=== PATIENT | female | born 1975 | race Caucasian/White ===

== ENCOUNTER 2022-03-18 00:33 | Inpatient (IN) | payer SELFPAY ==
[~2022-03-18] VITALS: Ht 160 cm; Wt 70.6 kg
[2022-03-18] MEDS ORDERED: SODIUM CHLORIDE 0.9% 1,000 ML IV ONE (01:00)
[2022-03-18] MEDS ORDERED: ASPIRIN 81MG TABLET PO ONE (01:00)
[2022-03-18 01:25] LABS: BASOPHILS % 0.6 % (0.0-2.0); EOSINOPHILS % 2.5 % (0.0-5.0); HEMATOCRIT. 38.6 % (36.0-48.0); LYMPHOCYTES % 23.7 % (20.0-50.0); MEAN CORPUSCULAR HEMOGLOBIN 28.6 pg (28.0-32.0); MEAN CORPUSCULAR VOLUME 85.2 fL (81.0-99.0); MEAN PLATELET VOLUME 9.2 fl (7.4-10.4); MONOCYTES % 8.3 % (2.0-8.0); NEUTROPHILS % 64.9 % (40.0-76.0); PLATELET 198 x1000/uL (130-400); RED BLOOD CELL COUNT 4.53 mill/uL (4.2-5.4); RED CELL DISTRIBUTION WIDTH 14.5 % (11.6-14.6)
[2022-03-18 01:27] LABS: CHLORIDE 109 mEq/L (98-107)
[2022-03-18 01:42] LABS: *AMPHETAMINES SCREEN URINE NEGATIVE (NEGATIVE); *BARBITURATES SCREEN URINE NEGATIVE (NEGATIVE); *BENZODIAZEPINES SCREEN URINE NEGATIVE (NEGATIVE); *COCAINE SCREEN URINE NEGATIVE (NEGATIVE); CANNABINOID URINE SCREEN NEGATIVE (NEGATIVE); METHADONE URINE SCREEN NEGATIVE (NEGATIVE); OPIATES URINE SCREEN NEGATIVE (NEGATIVE); PHENCYCLIDINE URINE SCREEN NEGATIVE (NEGATIVE)
[2022-03-18 01:47] LABS: ETHANOL BLOOD < 10 mg/dL
[2022-03-18] MEDS ORDERED: IPRATROPIUM/ALBUTEROL 0.5-3(2.5)MG/3ML NEB HHN PRN (05:15)
[2022-03-18] MEDS ORDERED: DIPHENHYDRAMINE 50MG/ML VIAL IV PRN (05:15)
[2022-03-18] MEDS ORDERED: MAGNESIUM/ALUMINUM HYDROXIDE/SIMETHICONE 30ML UDC PO PRN (05:15)
[2022-03-18] MEDS ORDERED: CLONIDINE 0.1MG TABLET PO PRN (05:15)
[2022-03-18] MEDS ORDERED: DOCUSATE SODIUM 100MG CAPSULE PO PRN (05:15)
[2022-03-18] MEDS ORDERED: HYDROCODONE/ACETAMINOPHEN 5/325MG TABLET PO PRN (05:15)
[2022-03-18] MEDS ORDERED: GUAIFENESIN 200MG/10ML SUGAR FREE UDC PO PRN (05:15)
[2022-03-18] MEDS ORDERED: ACETAMINOPHEN 325MG TABLET PO PRN ×2 (05:15)
[2022-03-18] MEDS ORDERED: ONDANSETRON HCL 4MG/2ML INJ IV PRN (05:15)
[2022-03-18] MEDS: METOPROLOL SUCCINATE 50MG ER TABLET PO SCH (06:01)
[2022-03-18] MEDS: PANTOPRAZOLE 40MG DR TABLET PO SCH (06:01)
[2022-03-18] MEDS: LOSARTAN POTASSIUM 100 MG TABLET PO SCH (06:01)
[2022-03-18 06:20] LABS: T4 FREE 0.97 ng/dL (0.76-1.46)
[2022-03-18 09:00] VITALS: BP 125/87
[2022-03-18] MEDS ORDERED: LOSA100T32 MT (09:10)
[2022-03-18] MEDS: ENOXAPARIN 40MG/0.4ML SYR SUBCUT SCH (09:11)
[2022-03-18 12:00] VITALS: BP 128/77
[2022-03-18] MEDS ORDERED: NALOXONE HCL 0.4MG/ML VIAL IV PRN (14:15)
[2022-03-18] MEDS ORDERED: POTASSIUM CHLORIDE INJ 40 MEQ in DEXT 5% WATER 250 ML IV ONE (15:00)
[2022-03-18 16:00] VITALS: BP 122/75
[2022-03-18] MEDS: KCL 20MEQ/100ML X 2 FOR TOTAL KCL 40MEQ/200ML IV SCH ×2 (17:07→19:07)
[2022-03-18 18:21] LABS: CREATINE KINASE MB FRACTION 1.6 ng/mL (0.5-3.6)
[2022-03-18 18:22] LABS: T4 FREE 0.94 ng/dL (0.76-1.46)
[2022-03-18 20:09] VITALS: BP 116/67
[2022-03-18] MEDS ORDERED: ATORVASTATIN CALCIUM 40MG TABLET PO SCH (21:00)
[2022-03-18 23:20] LABS: CREATINE KINASE 51 IU/L (26-192); CREATINE KINASE MB FRACTION < 1.0 ng/mL (0.5-3.6)
[2022-03-19 00:03] VITALS: BP 102/60
[2022-03-19 04:52] VITALS: BP 113/65
[2022-03-19] MEDS: PANTOPRAZOLE 40MG DR TABLET PO SCH (06:54)
[2022-03-19 07:38] LABS: HEMOGLOBIN 12.9 g/dL (12.0-16.0); MEAN CORPUSCULAR HEMOGLOBIN 28.8 pg (28.0-32.0); PLATELET 205 x1000/uL (130-400); RED BLOOD CELL COUNT 4.48 mill/uL (4.2-5.4); RED CELL DISTRIBUTION WIDTH 14.7 % (11.6-14.6)
[2022-03-19 08:00] VITALS: BP 129/81
[2022-03-19 08:06] LABS: CHLORIDE 103 mEq/L (98-107)
[2022-03-19 08:28] LABS: CREATINE KINASE 48 IU/L (26-192); CREATINE KINASE MB FRACTION < 1.0 ng/mL (0.5-3.6)
[2022-03-19] MEDS ORDERED: ASPIRIN 81MG TABLET PO SCH (09:00)
[2022-03-19] MEDS: ENOXAPARIN 40MG/0.4ML SYR SUBCUT SCH (09:28)
[2022-03-19] MEDS: LOSARTAN POTASSIUM 100 MG TABLET PO SCH (09:29)
[2022-03-19] MEDS: METOPROLOL SUCCINATE 50MG ER TABLET PO SCH (09:29)
[2022-03-19 12:00] VITALS: BP 96/58
[2022-03-19] MEDS ORDERED: PANT40TA51 PO (15:55)
[2022-03-19] MEDS ORDERED: LOSA100T3 PO (15:55)
[2022-03-19] MEDS ORDERED: METO-385 PO (15:55)
[2022-03-19] MEDS ORDERED: ASPI-1160 PO (15:55)
[2022-03-19] MEDS ORDERED: LIP40 PO (15:55)
[2022-03-19 16:00] VITALS: BP 109/69
[2022-03-19 16:30] VITALS: BP 109/69
== END 2022-03-19 17:00 | disposition home or self-care (01) | DRG 190 ==
LOC: ER 00:33 → 7WST 03:42
PROVIDERS: ADMIT Emergency Medicine; ATTEND Emergency Medicine
DX: I21.4 Non-ST elevation (NSTEMI) myocardial infarction (principal); I47.1 Supraventricular tachycardia; I10 Essential (primary) hypertension; F41.0 Panic disorder [episodic paroxysmal anxiety]; E78.5 Hyperlipidemia, unspecified; F17.210 Nicotine dependence, cigarettes, uncomplicated; Z79.82 Long term (current) use of aspirin; Z79.899 Other long term (current) drug therapy
CPT/HCPCS: 36415; 71045; 80048; 80053; 80061; 80305; 80320; 82550; 82553; 83036; 83880; 84439; 84443; 84484; 85025; 85027; 85379; 93005; 93306; 99285; J1650; J3480; J7030; G0480

== ENCOUNTER 2023-10-19 00:12 | Inpatient (IN) | payer SELFPAY ==
[~2023-10-19] VITALS: Ht 167.6 cm; Wt 83.5 kg
[~2023-10-19 00:12] MED LIST: ASPI-1160 PO; LIP40 PO; LOSA-415 PO; METO-385 PO; PANT40TA51 PO
[2023-10-19 01:18] LABS: BASOPHILS % 0.7 % (0.0-2.0); HEMATOCRIT. 39.7 % (36.0-48.0); HEMOGLOBIN. 13.2 g/dL (12.0-16.0); LYMPHOCYTES % 25.8 % (20.0-50.0); MEAN CORPUSCULAR HEMOGLOBIN 29.3 pg (28.0-32.0); MEAN CORPUSCULAR HGB CONC 33.3 g/dL (31.0-37.0); MEAN CORPUSCULAR VOLUME 87.9 fL (81.0-99.0); MEAN PLATELET VOLUME 9.6 fl (7.4-10.4); MONOCYTES % 7.8 % (2.0-8.0); NEUTROPHILS % 63.7 % (40.0-76.0); PLATELET 238 x1000/uL (130-400); RED BLOOD CELL COUNT 4.52 mill/uL (4.2-5.4); RED CELL DISTRIBUTION WIDTH 14.3 % (11.6-14.6); WHITE BLOOD COUNT 8.1 x1000/uL (4.5-11.0)
[2023-10-19] MEDS: METOPROLOL SUCCINATE 50MG ER TABLET PO STA (01:26)
[2023-10-19 01:29] LABS: CHLORIDE 106 mEq/L (98-107); POTASSIUM 3.5 mEq/L (3.5-5.1); SODIUM 138 mEq/L (136-145)
[2023-10-19 01:30] LABS: CARBON DIOXIDE 22 mEq/L (21-32)
[2023-10-19 01:35] LABS: CREATININE 0.8 mg/dL (0.6-1.0); GLUCOSE 195 mg/dL (70-105); UREA NITROGEN BLOOD 13 mg/dL (9-23)
[2023-10-19 01:53] LABS: TROPONIN I HIGH SENSITIVITY 116 ng/L (3.0-34)
[2023-10-19] MEDS: ASPIRIN 325MG EC TABLET PO ONE (02:35)
[2023-10-19 05:30] VITALS: BP 112/74; PULSE 87; RESP 24; TEMP 98.1
[2023-10-19 08:00] VITALS: BP 132/81; PULSE 83; RESP 20; TEMP 98.1
[2023-10-19] MEDS ORDERED: ONDANSETRON HCL 4MG/2ML INJ IV PRN (09:00)
[2023-10-19] MEDS ORDERED: KETOROLAC 30MG/ML VIAL IV PRN (09:00)
[2023-10-19] MEDS ORDERED: ACETAMINOPHEN 325MG TABLET PO PRN ×2 (09:00)
[2023-10-19] MEDS ORDERED: CLONIDINE 0.1MG TABLET PO PRN (09:00)
[2023-10-19] MEDS ORDERED: DOCUSATE SODIUM 100MG CAPSULE PO PRN (09:00)
[2023-10-19] MEDS ORDERED: IPRATROPIUM/ALBUTEROL 0.5-3(2.5)MG/3ML NEB NEB PRN (09:00)
[2023-10-19] MEDS ORDERED: MAGNESIUM/ALUMINUM HYDROXIDE/SIMETHICONE 30ML UDC PO PRN (09:00)
[2023-10-19] MEDS ORDERED: ZOLPIDEM TARTRATE 5MG TABLET PO PRN (09:00)
[2023-10-19] MEDS ORDERED: NITROGLYCERIN 0.4MG TABLET SL SL PRN (09:00)
[2023-10-19] MEDS ORDERED: GUAIFENESIN 200MG/10ML SUGAR FREE UDC PO PRN (09:00)
[2023-10-19] MEDS: ASPIRIN 325MG EC TABLET PO SCH (10:02)
[2023-10-19] MEDS: FAMOTIDINE 20MG TABLET PO SCH (10:03)
[2023-10-19] MEDS: METOPROLOL TARTRATE 25MG TABLET PO SCH (10:03)
[2023-10-19] MEDS: ENOXAPARIN 80MG/0.8ML SYR SUBCUT SCH ×2 (10:04→20:45)
[2023-10-19 10:35] LABS: TRIGLYCERIDE 239 mg/dL (0-150)
[2023-10-19 10:36] LABS: T4 FREE 0.94 ng/dL (0.89-1.76)
[2023-10-19 10:37] LABS: THYROID STIMULATING HORMONE 2.31 uIU/mL (0.55-4.78)
[2023-10-19 10:38] LABS: IRON 35 ug/dL (50-170)
[2023-10-19 10:39] LABS: LDL CHOLESTEROL 130 mg/dL (5-100)
[2023-10-19 10:40] LABS: ALANINE AMINOTRANSFERASE 39 IU/L (10-49); ALBUMIN 4.1 g/dL (3.2-4.8); ASPARTATE AMINOTRANSFERASE 32 IU/L (<34); BILIRUBIN DIRECT 0.1 mg/dL (<=3.0); BILIRUBIN TOTAL 0.3 mg/dL (0.1-1.0); CHOLESTEROL 180 mg/dL (<200); HDL CHOLESTEROL 42 mg/dL (>65); PROTEIN TOTAL 6.2 g/dL (6.0-8.3); TOTAL IRON BINDING CAPACITY 375 ug/dl (250-425)
[2023-10-19 10:45] LABS: FOLIC ACID (FOLATE) SERUM > 20.00 ng/mL (>5.38); VITAMIN B12 SERUM 626 pg/mL (211-911)
[2023-10-19 10:49] LABS: INR 0.9; PROTHROMBIN TIME 10.6 sec (9.6-11.0)
[2023-10-19 12:00] VITALS: BP 120/72; PULSE 79; RESP 18; TEMP 97.6
[2023-10-19 16:00] VITALS: BP 119/74; PULSE 76; RESP 20; TEMP 97.2
[2023-10-19 16:26] LABS: CREATINE KINASE MB FRACTION 1.5 ng/mL (0.5-3.6)
[2023-10-19] MEDS ORDERED: DEXTROSE 50% WATER 50ML SYRINGE IV PRN (17:00)
[2023-10-19] MEDS: INSULIN LISPRO 100 UNITS/ML SUBCUT SCH (17:10)
[2023-10-19 19:09] LABS: *AMPHETAMINES SCREEN URINE NEGATIVE (NEGATIVE); *BARBITURATES SCREEN URINE NEGATIVE (NEGATIVE); *BENZODIAZEPINES SCREEN URINE NEGATIVE (NEGATIVE); *COCAINE SCREEN URINE NEGATIVE (NEGATIVE); CANNABINOID URINE SCREEN NEGATIVE (NEGATIVE); ECSTASY MDMA SCREEN URINE NEGATIVE (NEGATIVE); METHADONE URINE SCREEN NEGATIVE (NEGATIVE); OPIATES URINE SCREEN NEGATIVE (NEGATIVE); PHENCYCLIDINE URINE SCREEN NEGATIVE (NEGATIVE)
[2023-10-19 19:27] LABS: TROPONIN I HIGH SENSITIVITY 117 ng/L (3.0-34)
[2023-10-19 20:00] VITALS: BP 110/61; PULSE 81; RESP 19; TEMP 98.6
[2023-10-19] MEDS: METOPROLOL TARTRATE 50MG TABLET PO SCH (20:45)
[2023-10-19] MEDS: BLOOD SUGAR DIAGNOSTIC STRIP TEST SCH (21:00)
[2023-10-20] VITALS: BP 111/66; PULSE 74; RESP 18; TEMP 97.6
[2023-10-20 00:58] LABS: CREATINE KINASE MB FRACTION 0.7 ng/mL (0.5-3.6)
[2023-10-20 04:00] VITALS: BP 122/74; PULSE 90; RESP 19; TEMP 97.8
[2023-10-20 06:44] LABS: BASOPHILS % 0.6 % (0.0-2.0); HEMATOCRIT. 34.4 % (36.0-48.0); HEMOGLOBIN. 11.8 g/dL (12.0-16.0); LYMPHOCYTES % 40.3 % (20.0-50.0); MEAN CORPUSCULAR HGB CONC 34.3 g/dL (31.0-37.0); MEAN CORPUSCULAR VOLUME 87.5 fL (81.0-99.0); MEAN PLATELET VOLUME 10.3 fl (7.4-10.4); NEUTROPHILS % 47.1 % (40.0-76.0); PLATELET 189 x1000/uL (130-400); RED BLOOD CELL COUNT 3.93 mill/uL (4.2-5.4); RED CELL DISTRIBUTION WIDTH 14.6 % (11.6-14.6)
[2023-10-20 06:58] LABS: CARBON DIOXIDE 22 mEq/L (21-32); CHLORIDE 106 mEq/L (98-107); SODIUM 136 mEq/L (136-145)
[2023-10-20 06:59] LABS: CALCIUM 8.8 mg/dL (8.7-10.4)
[2023-10-20 07:03] LABS: CREATININE 0.7 mg/dL (0.6-1.0); GLUCOSE 101 mg/dL (70-105)
[2023-10-20 07:04] LABS: UREA NITROGEN BLOOD 11 mg/dL (9-23)
[2023-10-20 07:05] LABS: ALANINE AMINOTRANSFERASE 31 IU/L (10-49); ALBUMIN 4.1 g/dL (3.2-4.8); ASPARTATE AMINOTRANSFERASE 22 IU/L (<34)
[2023-10-20 07:06] LABS: BILIRUBIN TOTAL 0.3 mg/dL (0.1-1.0); PHOSPHORUS 3.6 mg/dL (2.5-4.9)
[2023-10-20 08:00] VITALS: BP 111/69; PULSE 78; RESP 18; TEMP 97.4
[2023-10-20 08:02] LABS: TROPONIN I HIGH SENSITIVITY 63 ng/L (3.0-34)
[2023-10-20] MEDS: ASPIRIN 81MG EC TABLET PO SCH (08:42)
[2023-10-20 12:00] VITALS: BP 103/58; PULSE 77; RESP 18; TEMP 96.9
[2023-10-20] MEDS ORDERED: METO-539 PO (13:04)
[2023-10-20 16:00] VITALS: BP 117/80; PULSE 76; RESP 18; TEMP 97.1
[2023-10-20 16:14] VITALS: BP 117/80; PULSE 76; TEMP 97.1; O2SAT 96
[2023-10-20] MEDS ORDERED: ATORVASTATIN CALCIUM 10MG TABLET PO SCH (21:00)
== END 2023-10-20 16:45 | disposition home or self-care (01) | DRG 134 ==
LOC: ER 00:12 → 7EST 03:13 → EDBEDREQ 03:14
PROVIDERS: ADMIT Internal Medicine; ATTEND Internal Medicine
DX: I26.99 Other pulmonary embolism without acute cor pulmonale (principal); I21.A1 Myocardial infarction type 2; E11.65 Type 2 diabetes mellitus with hyperglycemia; I47.10 Supraventricular tachycardia, unspecified; E11.9 Type 2 diabetes mellitus without complications; E78.5 Hyperlipidemia, unspecified; F17.210 Nicotine dependence, cigarettes, uncomplicated; F41.9 Anxiety disorder, unspecified; I10 Essential (primary) hypertension; Z79.82 Long term (current) use of aspirin; Z79.899 Other long term (current) drug therapy; Z88.8 Allergy status to other drugs, medicaments and biological substances; Z82.49 Family history of ischemic heart disease and other diseases of the circulatory system
CPT/HCPCS: 36415; 80048; 80053; 80061; 80076; 80305; 82550; 82553; 82607; 82746; 82962; 83036; 83540; 83550; 83735; 83880; 84100; 84439; 84443; 84484; 85025; 85379; 93005; 93970; 99291; J1650; J1815